=== PATIENT | male | born 1990 | race Caucasian/White ===

== ENCOUNTER 2017-01-14 07:49 | Emergency (ER) | payer OTHER, BC | END 2017-01-14 10:00 | disposition home or self-care (01) | DX: S80.01XA Contusion of right knee, initial encounter (principal); S50.01XA Contusion of right elbow, initial encounter; Y35.811A Legal intervention involving manhandling, law enforcement official injured, initial encounter; Y93.89 Activity, other specified; Y99.0 Civilian activity done for income or pay; M25.461 Effusion, right knee | CPT/HCPCS: 1040M; 73564; 99282; 99283 ==